=== PATIENT | female | born 2000 | race African-American/Black ===

== ENCOUNTER 2020-02-24 09:07 | Emergency (ER) | payer BC ==
[~2020-02-24] VITALS: Ht 160 cm; Wt 64.9 kg
[2020-02-24 09:10] VITALS: BP_SYST 129
--- NOTE | 2020-02-24 09:17 | NUR ---
Patient to ER bed 7 to gown for evaluation. Side rails up. Report given to JANIE Jaeger.
--- NOTE | 2020-02-24 09:20 | NUR ---
Pt walked in to ER with c/o vaginal bleeding x5 days. Reports taking 2 tests with negative results. Denies abd cramping at this time. V/S stable, pt is afebrile. Currently sitting at bedside, will continue to monitor.
--- NOTE | 2020-02-24 09:23 | NUR ---
ER Dr. Vega at bedside examining patient.
--- NOTE | 2020-02-24 09:30 | NUR ---
Urine sample obtained and dip performed. Results given to
[2020-02-24 09:49] LABS: BASOPHILS % (AUTO) 0.8 % (0.0-2.0); EOSINOPHILS # (AUTO) 0.1 K/uL (0.0-0.4); EOSINOPHILS % (AUTO) 2.2 % (0.0-4.0); HEMATOCRIT 35.3 % (36-48); HEMOGLOBIN 11.2 g/dL (12.0-16.0); LYMPHOCYTES # (AUTO) 1.3 K/uL (1.0-5.5); LYMPHOCYTES % (AUTO) 33.7 % (20.5-51.5); MEAN CORPUSCULAR HEMOGLOBIN 26 pg (27-31); MEAN CORPUSCULAR HGB CONC 32 % (32-36); MEAN CORPUSCULAR VOLUME 81 fL (79.0-98.0); MONOCYTES # (AUTO) 0.4 K/uL (0.0-1.0); NEUTROPHILS % (AUTO) 52.3 % (40.0-70.0); PLATELET COUNT (AUTO) 252 K/uL (130-430); RED BLOOD CELL COUNT(AUTO) 4.34 MIL/uL (4.2-6.2); RED CELL DISTRIBUTION WIDTH 14.7 % (9.0-15.0); WHITE BLOOD COUNT (AUTO) 3.9 K/uL (4.5-11.0)
[2020-02-24 09:53] LABS: PROTHROMBIN TIME 10.4 SECS (9.5-12.5)
--- NOTE | 2020-02-24 10:20 | NUR ---
Patient given written and verbal discharge instructions and verbalizes understanding. ER MD discussed with patient the results and treatment provided. Patient in stable condition. ID arm band removed. No prescriptions given. Patient educated on pain management and to follow up with PMD. Pain Scale 0. Opportunity for questions provided and answered. Medication side effect fact sheet provided.
[2020-02-24 10:21] VITALS: BP_SYST 129
== END 2020-02-24 10:20 | disposition home or self-care (01) ==
LOC: SED 09:07
DX: N93.9 Abnormal uterine and vaginal bleeding, unspecified (principal)
CPT/HCPCS: 36415; 81002; 84702-TC; 85025; 85610-TC; 99283

== ENCOUNTER 2021-10-28 12:56 | Emergency (ER) | payer BC ==
[~2021-10-28] VITALS: Ht 160 cm; Wt 61.2 kg
[2021-10-28 12:56] VITALS: BP_SYST 128
--- NOTE | 2021-10-28 12:59 | NUR ---
Patient triaged and placed in waiting room. VSS and patient appears in no acute distress at this time. Accompanied by SELF, awaiting available bed, and MD notified of need for MSE.
--- NOTE | 2021-10-28 13:10 | NUR ---
BROUGHT BACK TO BED #3 AND REPORT GIVEN TO DANIELLA
--- NOTE | 2021-10-28 13:20 | NUR ---
ER at bedside examining patient.
--- NOTE | 2021-10-28 13:39 | NUR ---
Note sherione in EDM - 10/28/21 at 1635 by [email or web address] Patient given written and verbal discharge instructions and verbalizes understanding. ER discussed with patient the results and treatment provided. Patient in stable condition. ID arm band removed. . Patient educated on pain management and to follow up with PMD. Pain Scale . Opportunity for questions provided and answered. Medication side effect fact sheet provided.
[2021-10-28 13:57] LABS: BASOPHILS # (AUTO) 0.1 K/uL (0.0-0.2); BASOPHILS % (AUTO) 3.2 % (0.0-2.0); EOSINOPHILS # (AUTO) 0.1 K/uL (0.0-0.4); EOSINOPHILS % (AUTO) 2.1 % (0.0-4.0); HEMATOCRIT 39.5 % (36-48); HEMOGLOBIN 13.2 g/dL (12.0-16.0); LYMPHOCYTES # (AUTO) 0.6 K/uL (1.0-5.5); LYMPHOCYTES % (AUTO) 14.5 % (20.5-51.5); MEAN CORPUSCULAR HEMOGLOBIN 28 pg (27-31); MEAN CORPUSCULAR HGB CONC 33 % (32-36); MEAN CORPUSCULAR VOLUME 84 fL (79.0-98.0); MONOCYTES # (AUTO) 0.6 K/uL (0.0-1.0); MONOCYTES % (AUTO) 15.8 % (1.7-9.3); NEUTROPHILS # (AUTO) 2.5 K/uL (1.8-7.7); NEUTROPHILS % (AUTO) 64.4 % (40.0-70.0); PLATELET COUNT (AUTO) 203 K/uL (130-430); RED BLOOD CELL COUNT(AUTO) 4.73 MIL/uL (4.2-6.2); RED CELL DISTRIBUTION WIDTH 17.1 % (9.0-15.0); WHITE BLOOD COUNT (AUTO) 3.8 K/uL (4.8-10.8)
--- NOTE | 2021-10-28 14:25 | NUR ---
Per ceramics technician, pt in ultrasound and will be receiving pelvic exam as well. Urine cup provided for sample.
[2021-10-28 14:37] LABS: CALCIUM 8.2 mg/dL (8.4-11.0); CREATININE 0.83 mg/dL (0.55-1.30); POTASSIUM 3.7 mmol/L (3.5-5.1)
[2021-10-28 15:03] LABS: ALBUMIN 3.2 g/dL (3.4-4.8); TOTAL BILIRUBIN 0.2 mg/dL (0.0-1.0)
--- NOTE | 2021-10-28 15:39 | NUR ---
Patient given written and verbal discharge instructions and verbalizes understanding. ER MD discussed with patient the results and treatment provided. Patient in stable condition. ID arm band removed. Patient educated on pain management and to follow up with PMD. Pain Scale [0]. Opportunity for questions provided and answered. Medication side effect fact sheet provided. DISCHRGED BY DR ERNANDEZ
[2021-10-28 15:40] VITALS: BP_SYST 130
[2021-10-28 16:13] LABS: BILIRUBIN,URINE NEGATIVE (NEGATIVE); BLOOD, URINE NEGATIVE (NEGATIVE); COLOR,URINE YELLOW (YELLOW); GLUCOSE,URINE NEGATIVE (NEGATIVE); KETONES,URINE 3+ (NEGATIVE); LEUKOCYTE ESTERASE ,URINE NEGATIVE (NEGATIVE); NITRITE, URINE NEGATIVE (NEGATIVE); PH,URINE 6.5 (5.0-8.0); PROTEIN URINE TRACE (NEGATIVE); UROBILINOGEN,URINE 0.2 (0.2-1.0)
[2021-10-28 17:25] LABS: CLARITY/URINE HAZY (CLEAR)
[2021-10-28 17:48] LABS: BACTERIA,URINE MODERATE /HPF (None Seen); RBC,URINE 0-3 /HPF (0-3); WBC,URINE 0-3 /HPF (0-3)
[2021-10-28 17:49] LABS: MUCUS,URINE 3+ /LPF (None Seen)
== END 2021-10-28 15:39 | disposition home or self-care (01) ==
LOC: SED 12:56
DX: O26.891 Other specified pregnancy related conditions, first trimester (principal); Z3A.01 Less than 8 weeks gestation of pregnancy
CPT/HCPCS: 36415; 76700-TC; 76801; 76817; 80053; 81000; 81025; 82150; 83690; 84702; 85025; 87086; 99284